=== PATIENT | male | born 1960 | race Caucasian/White ===

== ENCOUNTER 2017-12-15 04:55 | Day surgery (SDC) | payer OTHER ==
[2017-12-14 08:21] VITALS: BMI 28.3
[2017-12-15 12:08] LABS: URINE APPEARANCE CLEAR; URINE BILIRUBIN NEGATIVE (<2.0 mg/dL); URINE COLOR LTYELLOW; URINE GLUCOSE (UA) 3+ (NEGATIVE); URINE KETONE NEGATIVE (NEGATIVE); URINE LEUK ESTERASE NEGATIVE (NEGATIVE); URINE NITRITE NEGATIVE (NEGATIVE); URINE UROBILINOGEN NEGATIVE mg/dL (0.2-1.0)
[2017-12-15 12:18] LABS: URINE PROTEIN 1+ (NEGATIVE)
[2017-12-15 12:34] LABS: EPI CELLS RARE /HPF (FEW); URINE HYALINE CAST 2 /lpf
[2017-12-15] MEDS ORDERED: BUPIVACAINE HCL/PF 0.5% (5MG/ML) 10 ML VIAL IJ ONE ×2 (14:30)
--- NOTE | 2017-12-15 15:42 | OP ---
Operative Note - Note: Operative Date: 12/15/17 Pre-Operative Diagnosis: bilateral inguinal hernias Operation: same Findings: direct defects Post-Operative Diagnosis: Same as Pre-op Surgeon: Carols Newsome Cabinet Mounter: Jamie Lacey Anesthesia: General Estimated Blood Loss (mls): 10
[2017-12-15] MEDS ORDERED: ONDANSETRON 4 MG/2 ML VIAL IVPUSH PRN (15:46)
[2017-12-15] MEDS ORDERED: PROMETHAZINE HCL 25 MG/1 ML VIAL IVPUSH PRN (15:46)
[2017-12-15] MEDS ORDERED: oxyCODONE HCL 5 MG TABLET PO PRN (15:46)
[2017-12-15] MEDS ORDERED: LACTATED RINGERS SOLUTION 1,000 ML IV SCH (16:00)
--- NOTE | 2017-12-15 16:39 | OP ---
DATE OF OPERATION: 12/15/2017 PREOPERATIVE DIAGNOSIS: Bilateral inguinal hernias. POSTOPERATIVE DIAGNOSIS: Bilateral direct inguinal hernias. PROCEDURE: Laparoscopic bilateral inguinal hernia repairs with mesh. SURGEON: Carlos Newsome MD CHIEF MECHANICAL OFFICER: Jamie Lacey MD COMPLICATIONS: None. BLEEDING: Minimal. Patient tolerated the procedure well. This is a 57-year-old male, presents with bilateral inguinal hernias and was referred for surgical evaluation. I concurred with the diagnosis and offered surgery as a option. Patient agrees to proceed as planned with laparoscopic bilateral inguinal hernia repairs with mesh. Risks and benefits discussed with patient extensively. In the operating room, patient was placed in the supine position. After induction of general anesthesia, he was prepped and draped in the usual sterile fashion. The operation was begun, with insufflation, with a periumbilical incision, and exposure of the anterior fascia using a scalpel. The fascia was incised longitudinally, allowing access to the preperitoneal space. A port was introduced into the preperitoneal space and then insufflation was established in this plane, and then the camera dissection using the camera to slowly dissect the loose areolar tissue off the anterior abdominal wall and the rectus sheath, exposing the preperitoneal space. Next, two 5-mm ports were introduced along the midline, one in the suprapubic position, one detention between the umbilicus and the pubic symphysis. Dissection was carried out first on the left side to expose the Milton's ligament using some blunt dissection and a Maryland dissector. Next, the iliopubic tract was exposed with blunt dissection using 2 Maryland dissectors to completely expose it. The central dissection was then performed with exploration of the cord structures. A direct sac was clearly visualized and completely reduced and released completely off the transversalis fascia. The cord structures were explored. There was no indirect sac. Attention was directed towards the right side, where a similar dissection was performed, with medial dissection of the Milton's ligament, lateral dissection of the iliopubic tract, and central dissection of cord structures, and release of a direct sac as well. Exploration of the cord structures revealed no indirect defect or lipoma of the cord. At this point then, the repair was performed using a 10 x 15 ProGrip mesh, which was placed to cover both the direct and femoral spaces bilaterally. Two segments of mesh of 10 x 15 were each applied to separate sides, overlapping in the middle, taking care to make sure that the direct defect was appropriately closed. After the mesh was in good position, Marcaine is infiltrated into the preperitoneal space. The ports are then removed. The fascia at the umbilical port was closed with 0 Vicryl sutures, the skin was closed with 4-0 Monocryl, Dermabond was applied. The patient was returned to the recovery room awake, alert, in stable condition. He tolerated the procedure well. Brianna [id number]
[2017-12-15 17:01] VITALS: TEMP 97.8
[2017-12-15 17:04] VITALS: BP 122/75; PULSE 90
--- NOTE | 2017-12-21 11:23 | SURG ---
Surgery Remediation Technician Note Remediation Technician: Jamie Lacey MD Date of Service: 12/15/17 Diagnosis: bilateral inguinal hernias Procedure: laparoscopic bilateral inguinal hernia repair with mesh I was present for the entirety of the operative procedure. For further detail, please refer to operative report.
== END 2017-12-15 17:50 | disposition home or self-care (01) ==
LOC: JASUSAT 04:55
PROVIDERS: ATTEND Surgery
PROC: 0YUA4JZ Supplement Bilateral Inguinal Region with Synthetic Substitute, Percutaneous Endoscopic Approach (ICD-10-PCS; principal; 2017-12-15 13:00)
DX: K40.20 Bilateral inguinal hernia, without obstruction or gangrene, not specified as recurrent (principal)
CPT/HCPCS: 81003; 81015; 82962; 86850; 86900; 86901; 94760